=== PATIENT | female | born 1955 | race Caucasian/White ===

== ENCOUNTER 2023-01-12 11:38 | Day surgery (SDC) | payer OTHER ==
--- NOTE | 2023-01-04 09:53 | RAD REPORT ---
EXAM DESCRIPTION: RAD - Chest Pa And Lat (2 Views) - 01/04/2023 9:46 am CLINICAL HISTORY: Pre op pending TURBT Chest pain. COMPARISON: No comparisons FINDINGS: The lungs are clear. The heart is normal in size. No displaced fractures. IMPRESSION: No acute or concerning finding suspected. The USPSTF recommends annual screening for lung cancer with low-dose CT (LDCT) in adults aged 50 to 80 years who have a 20 pack-year smoking history and currently smoke or have quit within the past 15 years.
[2023-01-04 10:28] LABS: Absolute Lymphocytes (CBC) 1.3 K/uL (0.7-4.9); Hematocrit 40.7 % (36.0-45.0); Lymphocytes % 26.2 % (15.3-44.8); MCV 90.4 fL (80-100); MPV 8.8 fL (7.6-11.3); Platelets 242 thou/uL (152-406); RBC Red Blood Cell Count 4.51 M/uL (3.86-4.86)
[2023-01-04 10:30] LABS: Protime INR 1.01
--- NOTE | 2023-01-04 12:14 | EKG ---
Test Date: 2023-01-04 Test Time: 09:36:13 Clin Application Specialist: LON MEASUREMENT RESULTS: Intervals: Rate: 68 [place]: 166 QRSD: 92 QT: 362 QTc: 384 [place]: P: 54 [place]: 166 QRS: 30 T: 65 INTERPRETIVE STATEMENTS: Sinus rhythm with premature atrial complexes in a pattern of bigeminy Otherwise normal ECG No previous ECG available for comparison Electronically Signed On 01-04-23 12:14:00 CDT by Rm Loo
[2023-01-12] MEDS ORDERED: Ringers Lactate 1,000 ML IV ONE (12:08)
[2023-01-12] MEDS ORDERED: GEMCITABINE HCL 23.6 ML IS ONE (13:00)
[2023-01-12] MEDS ORDERED: FENTANYL CITR 100 MCG/2 ML ONE (14:55)
[2023-01-12] MEDS ORDERED: propofoL 200 MG/20 ML VIAL IV ONE (14:55)
[2023-01-12] MEDS ORDERED: MIDAZOLAM HCL 2 MG/2 ML INJ ONE (14:55)
[2023-01-12] MEDS ORDERED: LIDOCAINE 1% MPF 5 ML VIAL ONE (14:56)
[2023-01-12] MEDS ORDERED: KETOROLAC 30 MG/ML INJ ONE (14:56)
[2023-01-12] MEDS ORDERED: ONDANSETRON 4 MG/2 ML VIAL ONE (14:56)
[2023-01-12] MEDS ORDERED: CEFAZOLIN SODIUM 2 GM/VIAL ONE (15:01)
[2023-01-12] MEDS ORDERED: PHENAZOPYRIDINE 100MG TAB PO ONE (16:45)
[2023-01-12] MEDS ORDERED: HYDROCODONE/APAP 5/325 MG TAB PO PRN (16:45)
[2023-01-12] MEDS ORDERED: DIAZEPAM 5 MG TABLET PO ONE (16:53)
[2023-01-12 17:53] VITALS: BP 135/70; TEMP 97.9; O2SAT 99
--- NOTE | 2023-01-12 23:23 | OP ---
Surgeon: REMI PRO Preoperative Diagnosis: Gross hematuria Bladder tumor Postoperative Diagnoses: as above Principle Procedures: 1. Transurethral resection of the bladder tumor. 2. Biopsies of the tumor base. 3. Instillation of intravesical gemcitabine chemotherapy 2 g in 50 cc normal saline. 4. Placement of urethral Blandon catheter. Indication For Procedure: Ms. Cavanaugh presented to the Urology Clinic with gross hematuria and underwent cystoscopic evaluation identifying the presence of a bladder tumor. She was counseled on the need for surgical intervention, and I also counseled her on the potential benefit to postoperative intravesical chemotherapy. Procedure In Detail: The patient was consented in the preoperative holding area before being transferred to the operative suite where general anesthesia was induced. She was given Ancef 2 g IV antimicrobial prophylaxis, and pneumo boots were provided for DVT prophylaxis. She was placed in the lithotomy position, padded and secured to the table appropriately. Her genitalia were prepped with Hibiclens and draped in standard fashion. The case was begun using urethral sounds to dilate the meatus and urethra to 28-Honduran. We then passed the 26- Honduran resectoscope and visual obturator via the urethra into her bladder with ease. I decompressed her bladder of fluid and urine and surveyed it and identified the bladder tumor sitting within the anterior dome of the bladder slightly to the right and about 2 to 3 cm in diameter, somewhat nodular in appearance and bleeding. As a result, I began resecting the tumor initially starting superficially and whittling the tumor down to the base. The initial component of resection was sent for pathologic analysis as bladder tumor. I then continued the resection along the base of the tumor as it was nodular and appearing invasive into the mucosa and submucosa if not into the muscularis. So, the secondary layer of resection, the deep layer of the bladder tumor was sent as deep bladder tumor. After I had resected all visible nodular component of the tumor with the exception of the deep suspicion of the tumor actually involving the muscularis propria and in fact potentially extending into extravesical fat in the central portion of the tumor, I then utilized cold cup biopsy forceps and biopsied the deepest component of the tumor centrally where it appeared potentially to be invasive or extravesically extending. After these biopsies were undertaken, I did not see any fat, but there was a thin layer of muscularis propria still present. The tumor to me did appear to involve the muscularis propria. As a result, I sent that last set of cold cup biopsies as base of tumor resection site. This was also sent for pathologic analysis. I then carefully fulgurated the entirety of the tumor including the edges of the tumor to ensure the entire site was resected or completely treated and fulgurated. In the end, after Ellik evacuating all tumor chips and debris from within her bladder, I again ensured the site of resection was completely hemostatic. Once I was confident of its hemostasis and all bladder tumor and circulating tumor cells had been evacuated from within her bladder, I then placed an 18-Honduran urethral Blandon catheter into her bladder and allowed it to decompress. I then retrograde instilled gemcitabine 2 g in 50 cc normal saline into her bladder with ease. She was then taken out of the lithotomy position, the chemotherapy was clamped within her bladder and associated with a leg bag for ease of subsequent contained decompression. Towels were used to drape off her genitalia in the event of bladder spasm related extrusion of the chemotherapy. She was then awakened from general anesthesia, transferred to a stretcher, and then transferred to the recovery room in good condition. Complications: None. Discharge Disposition: I would like her to keep the urethral Blandon catheter for 5 to 7 days. As a result, I recommend she follow up in the Urology Clinic on Wednesday or Wednesday for a voiding trial with the nurses. She may subsequently follow up with me in 1 to 2 weeks to discuss the results of the pathology. I sent her with a prescription for cephalexin for 7 days while the catheter is in place and the resection site has an opportunity to heal. It is my suspicion the tumor was invasive, and thus, additional therapy may be required. Given the isolated localization of the tumor, if no other signs of tumor can be demonstrated elsewhere in her bladder, she may be a candidate for partial cystectomy. MRI will likely be required prior to those considerations. FLAKO/PAOLO Voice ID: [id number] Report ID: [id number] LOBO
== END 2023-01-12 18:54 | disposition home or self-care (01) ==
LOC: OR 11:38
PROVIDERS: ATTEND Urology
DX: C67.1 Malignant neoplasm of dome of bladder (principal); R31.0 Gross hematuria; R39.9 Unspecified symptoms and signs involving the genitourinary system
CPT/HCPCS: 93005; 87088; 85025; 87086; 80048; 36415; 85610; 88305; 88307; 71046; J9201; J2704; J2001; J2250; J3010; J2405; J7120